=== PATIENT | female | born 1990 | race Two or more races ===

== ENCOUNTER 2019-09-02 11:23 | Emergency (ER) | payer OTHER ==
[~2019-09-02] VITALS: Ht 162.6 cm; Wt 56.0 kg
[2019-09-02 11:31] VITALS: BP 137/106
[2019-09-02] MEDS ORDERED: HYDR25SU32 RC (13:38)
== END 2019-09-02 14:47 | disposition home or self-care (01) ==
LOC: ER 11:25
DX: K64.9 Unspecified hemorrhoids (principal); F41.9 Anxiety disorder, unspecified; F32.9 Major depressive disorder, single episode, unspecified; Z79.899 Other long term (current) drug therapy
CPT/HCPCS: 99282